=== PATIENT | male | born 1945 | race Hispanic/Latino ===

== ENCOUNTER 2019-11-21 10:23 | Inpatient (IN) | payer OTHER ==
[~2019-11-21] VITALS: Ht 165.1 cm; Wt 75.8 kg
[~2019-11-21 10:23] MED LIST: AEC81 PO; FURO40TA7 PO; LISI1TAB51 PO; METO50TA9 PO; NPH,100V SQ; WARF6TAB49 PO
[2019-11-21] MEDS ORDERED: SODIUM CHLORIDE 0.9% 1000ML 1,000 ML IV ONE (10:48)
[2019-11-21 11:05] LABS: APPEARANCE,URINE Clear (CLEAR); BILIRUBIN,URINE Negative (NEGATIVE); COLOR,URINE Yellow (YELLOW); GLUCOSE, URINE (UA) Negative (NEGATIVE); KETONES,URINE Negative (NEGATIVE); LEUKOCYTE ESTERASE ,URINE Negative (NEGATIVE); NITRATE,URINE Negative (NEGATIVE); OCCULT BLOOD,URINE Negative (NEGATIVE); PROTEIN,URINE Negative (NEGATIVE); UROBILINOGEN,URINE 0.2 mg/dL (0.2-1.0)
[2019-11-21 11:19] LABS: BASOPHILS % (AUTO) 0.3 % (0.0-5.0); HEMATOCRIT 35.8 % (42-54); LYMPHOCYTES % (AUTO) 12.5 % (21.0-51.0); MEAN CORPUSCULAR HEMOGLOBIN 29.8 pg (27.0-33.0); MEAN CORPUSCULAR HGB CONC 33.2 g/dL (32.0-36.0); MEAN CORPUSCULAR VOLUME 89.5 fL (79-99); MONOCYTES % (AUTO) 6.4 % (3.0-13.0); NEUTROPHILS % (AUTO) 78.5 % (40.0-77.0); PLATELET COUNT (AUTO) 363 K/uL (130-400); RED CELL DISTRIBUTION WIDTH 13.9 % (11.0-15.5); WHITE BLOOD COUNT (AUTO) 16.7 K/uL (4.8-10.8)
[2019-11-21 11:36] LABS: ALBUMIN 3.3 g/dL (3.5-5.0); BILIRUBIN,TOTAL 0.6 mg/dL (0.2-1.0); CREATININE 2.4 mg/dL (0.5-1.5); POTASSIUM 4.8 mmol/L (3.5-5.1); TOTAL PROTEIN, SERUM 6.6 g/dL (6.0-8.3)
[2019-11-21 11:41] LABS: INR 1.7 (0.85-1.15); PARTIAL THROMBOPLASTIN TIME 29.8 SEC (26.3-35.5)
[2019-11-21] MEDS ORDERED: LEVOFLOXACIN 500 MG/D5W 100 ML 100 ML ONE (13:15)
[2019-11-21] MEDS ORDERED: METRONIDAZOLE 500MG/100ML BAG 100 ML ONE (13:22)
[2019-11-21] MEDS ORDERED: ONDANSETRON HCL 4 MG/2 ML VIAL IV PRN (14:15)
[2019-11-21] MEDS ORDERED: HYDRALAZINE HCL 20 MG/ML VIAL IV PRN (14:15)
[2019-11-21] MEDS ORDERED: ACETAMINOPHEN 325 MG TAB PO PRN (14:15)
[2019-11-21] MEDS: SODIUM CHLORIDE 0.9% 1000ML 1,000 ML IV SCH (14:37)
[2019-11-21] MEDS: LACTULOSE 20 GM/30 ML UDCUP PO SCH (14:45)
[2019-11-21] MEDS ORDERED: LACTULOSE 20 GM/30 ML UDCUP ONE (16:03)
[2019-11-21] MEDS ORDERED: ZOSYN 3.375GM+NS 50ML 50 ML IV ONE (16:03)
[2019-11-21 16:20] LABS: HEMOGLOBIN A1C 8.1 % (4.0-6.0)
[2019-11-21 16:31] LABS: CRP QUANTITATIVE 34.6 mg/L (0.00-9.0); PHOSPHORUS 4.5 mg/dL (2.5-4.9)
[2019-11-21 16:37] LABS: TROPONIN I 0.57 ng/mL (0.00-0.06)
[2019-11-21 17:20] VITALS: BP 106/58
--- NOTE | 2019-11-21 17:35 | NUR ---
ADMISSION FROM ER. PT AAO X 3 . PT STATED THAT HE IS FORGETFUL BUT IS ABLE TO FOCUS WITH HIS CARE, AND QUESTIONS . REVIEW PLAN OF CARE. OFFER DIET. DUE TO PT IS VERY HUNGRY FALL RISK REVIEW. HX OF PT TAKES COUMADIN . AND DOES REMEMBER IF HE TAKES IT IN THE AM . OR NITE. PENDING TO BRING MEDICATIONS FROM HOME, WILL DIRECT QUESTIONS
[2019-11-21] MEDS: PREDNISONE 5 MG TABLET PO SCH (18:42)
--- NOTE | 2019-11-21 18:45 | NUR ---
POSITION PT TO HIS LEFT SIDE, AND GAVE THE SOAP SUB ENEMA NO. ONE . HAD A LARGE DARK GREEN CONSTIPATED SEMI LOOSE BM. CLEAN PT. HAVING LIQ BM INTERMMITTED . . . TODAY COUMADIN OF 5 MG PO WILL BE GIVEN AFTER RECTAL ENEMA NO. 2 . WILL MONITOR RISK OF BLEEDING. TOLERATE NO.1 ENEMA WITH NO BLEEDING . AND ALSO WILL GET INFORMATION OF LAST DOSE OF COUMADIN FROM HIS JOSE ALBERTO . WHEN SHE COME IN. CALL LIGHT IN REACH .
[2019-11-21 19:53] VITALS: BP 102/57
[2019-11-21] MEDS: ATORVASTATIN CALCIUM 10 MG TABLET PO SCH (21:33)
[2019-11-21] MEDS: ZOSYN 3.375GM+NS 50ML 50 ML IV SCH (21:33)
[2019-11-21] MEDS: WARFARIN SODIUM 5 MG TAB PO SCH (21:34)
[2019-11-21 23:18] LABS: TROPONIN I 0.43 ng/mL (0.00-0.06)
[2019-11-21 23:53] VITALS: BP 107/50
[2019-11-22 03:49] VITALS: BP 121/68
[2019-11-22] MEDS ORDERED: DEXTROSE 50%-WATER 50 ML DISP.SYRIN IV ONE (04:59)
[2019-11-22 05:35] LABS: BASOPHILS % (AUTO) 0.1 % (0.0-5.0); EOSINOPHILS % (AUTO) 0.6 % (0.0-8.0); HEMATOCRIT 31.8 % (42-54); MEAN CORPUSCULAR HGB CONC 32.7 g/dL (32.0-36.0); MEAN CORPUSCULAR VOLUME 88.6 fL (79-99); MONOCYTES % (AUTO) 6.5 % (3.0-13.0); NEUTROPHILS % (AUTO) 75.1 % (40.0-77.0); PLATELET COUNT (AUTO) 311 K/uL (130-400); RED BLOOD CELL COUNT(AUTO) 3.59 MIL/uL (4.50-6.20); RED CELL DISTRIBUTION WIDTH 13.9 % (11.0-15.5); WHITE BLOOD COUNT (AUTO) 13.4 K/uL (4.8-10.8)
[2019-11-22 05:52] LABS: CREATININE 1.6 mg/dL (0.5-1.5); POTASSIUM 4.4 mmol/L (3.5-5.1); TROPONIN I 0.37 ng/mL (0.00-0.06)
[2019-11-22 08:37] VITALS: BP 122/69
[2019-11-22] MEDS: ASPIRIN 325 MG TABLET PO SCH (09:00)
[2019-11-22] MEDS: ABIRATERONE ACETATE 250 MG PO SCH (09:00)
[2019-11-22] MEDS: BICALUTAMIDE 50 MG PO SCH (09:00)
[2019-11-22] MEDS: ZOSYN 3.375GM+NS 50ML 50 ML IV SCH ×2 (09:35→20:41)
[2019-11-22] MEDS: PREDNISONE 5 MG TABLET PO SCH ×2 (09:35→15:15)
[2019-11-22] MEDS: TAMSULOSIN HCL 0.4 MG CAP.ER.24H PO SCH (09:35)
[2019-11-22] MEDS: LISINOPRIL 5 MG TABLET PO SCH (09:36)
[2019-11-22] MEDS ORDERED: TAMS-1 PO (09:51)
[2019-11-22] MEDS ORDERED: METO50 PO (09:51)
[2019-11-22] MEDS ORDERED: BICA50TA7 PO (09:51)
[2019-11-22] MEDS ORDERED: WARF-57 PO (09:51)
[2019-11-22] MEDS ORDERED: METF-444 PO (09:51)
[2019-11-22] MEDS ORDERED: ABIR250T2 PO (09:51)
[2019-11-22] MEDS ORDERED: PRED5TAB44 PO (09:51)
[2019-11-22] MEDS ORDERED: WARF4TAB72 PO (09:51)
[2019-11-22] MEDS ORDERED: LISI1TAB51 PO (09:51)
[2019-11-22] MEDS ORDERED: FURO40TA5 PO (09:51)
[2019-11-22] MEDS ORDERED: ATOR10TA69 PO (09:51)
[2019-11-22] MEDS ORDERED: NPH,100V11 SQ (09:53)
[2019-11-22] MEDS ORDERED: METOPROLOL TARTRATE 25 MG TAB PO SCH (10:30)
[2019-11-22] MEDS ORDERED: METOPROLOL TARTRATE 1 MG/ML 5ML VIAL IV SCH (14:30)
[2019-11-22] MEDS ORDERED: METOPROLOL TARTRATE 1 MG/ML 5ML VIAL IV ONE (14:44)
[2019-11-22] MEDS: LACTULOSE 20 GM/30 ML UDCUP PO SCH (14:45)
[2019-11-22] MEDS ORDERED: FAMOTIDINE 20MG TAB 20 MG TAB ONE (15:07)
[2019-11-22] MEDS: WARFARIN SODIUM 2 MG TAB PO SCH (15:14)
[2019-11-22] MEDS: SODIUM CHLORIDE 0.9% 1000ML 1,000 ML IV SCH ×2 (15:14→20:37)
--- NOTE | 2019-11-22 15:21 | NUR ---
1500 patient signed IM Letter, I faxed IM Letter to [phone] and placed in chart under consent tab.
--- NOTE | 2019-11-22 15:30 | NUR ---
CM NOTE/IA MEET WITH PATIENT IN ROOM. PER PATIENT, LIVES WITH SPOUSE, IS INDEPENDENT WITH ADLS, HAS USE OF CANE AND STD WALKER, NO HOME HEALTH IN USE AND FEELS SAFE TO RETURN HOME. Addendum: 11/24/19 at 1531 by SHUKRI THOMPSON RN CM Amended: Links added.
--- NOTE | 2019-11-22 17:00 | NUR ---
CM ASSESSMENT PER CM NOTES, PATIENT LIVES WITH SPOUSE, IS INDEPENDENT OF ADLS, USSES A CANEAND OR WALKER, AND DCP PLAN IS HOME. CM TO FOLLOW Addendum: 11/23/19 at 1707 by KANDICE MUNROE RN CM Amended: Links added.
[2019-11-22 17:12] VITALS: BP 148/75
[2019-11-22 20:25] VITALS: BP 109/64
[2019-11-22] MEDS: ATORVASTATIN CALCIUM 10 MG TABLET PO SCH (20:41)
--- NOTE | 2019-11-22 21:26 | NUR ---
NOTE 2053 PATIENT HAS A BLOOD SUGAR LEVEL OF 327. CONTACTED HOSPITALIST JACOB VIA ANSWERING SERVICE. 2125 RECEIVED CALL BACK FROM KEVON CORTEZ NP. INFORMED HER OF PATIENT BLOOD SUGAR AND ALSO THAT HE HAS A 52 LEVEL THIS MORNING. ORDERS RECEIVED FOR 1/2 SS INSULIN. NOTIFIED PATIENT OF NEW ORDERS.
[2019-11-22] MEDS: INSULIN HUMULIN R 100 UNIT/ML 3ML SQ SCH (23:21)
[2019-11-22 23:37] VITALS: BP 120/63
[2019-11-23] MEDS: SODIUM CHLORIDE 0.9% 1000ML 1,000 ML IV SCH ×3 (02:59→20:55)
[2019-11-23 04:00] VITALS: BP 141/64
[2019-11-23 05:51] LABS: BASOPHILS % (AUTO) 0.3 % (0.0-5.0); EOSINOPHILS % (AUTO) 2.7 % (0.0-8.0); HEMATOCRIT 32.3 % (42-54); MEAN CORPUSCULAR HEMOGLOBIN 29.8 pg (27.0-33.0); MEAN CORPUSCULAR HGB CONC 32.8 g/dL (32.0-36.0); MEAN CORPUSCULAR VOLUME 90.7 fL (79-99); MONOCYTES % (AUTO) 8.8 % (3.0-13.0); NEUTROPHILS % (AUTO) 56.6 % (40.0-77.0); PLATELET COUNT (AUTO) 300 K/uL (130-400); RED BLOOD CELL COUNT(AUTO) 3.56 MIL/uL (4.50-6.20); RED CELL DISTRIBUTION WIDTH 13.8 % (11.0-15.5)
[2019-11-23] MEDS: INSULIN HUMULIN R 100 UNIT/ML 3ML SQ SCH (05:55)
--- NOTE | 2019-11-23 05:58 | NUR ---
NOTE 0530 PATIENT WITH BLOOD SUGAR LEVEL 30. PATIENT IS AWAKE AND ALERT. SPEECH IS CLEAR AND RESPONDS APPROPRIATELY. DENIES FEELING ANY SYMPTOMS OF LOW BLOOD SUGAR. WILL GIVE HIM SNACK. 0550 PAGED HOSPITALIST TO NOTIFY. PATIENT DRANK JUICE. 0554 RECEIVED CALLBACK FROM Jesi CORTEZ INCIDENT RESPONSE MANAGER. NOTIFIED OF SITUATION. ORDERS RECEIVED FOR HYPOGLYCEMIA PROTOCOL AND IF UPON RECHECK OF BLOOD SUGAR, (SINCE PATIENT DRANK JUICE) IT IS STILL LOW, GIVE 1 AM OF D50% IV. NOTIFIED PATIENT OF NEW ORDERS.
[2019-11-23] MEDS ORDERED: DEXTROSE 50%-WATER 50 ML DISP.SYRIN IV PRN (06:00)
[2019-11-23] MEDS ORDERED: GLUCAGON 1MG KIT 1 MG ML IM PRN (06:00)
[2019-11-23] MEDS: PREDNISONE 5 MG TABLET PO SCH ×2 (06:12→15:41)
[2019-11-23 06:17] LABS: CREATININE 1.3 mg/dL (0.5-1.5); MAGNESIUM 1.9 mg/dL (1.80-2.40); POTASSIUM 4.2 mmol/L (3.5-5.1)
[2019-11-23 08:32] VITALS: BP 179/89
[2019-11-23] MEDS: TAMSULOSIN HCL 0.4 MG CAP.ER.24H PO SCH (08:39)
[2019-11-23] MEDS: ASPIRIN 325 MG TABLET PO SCH (08:39)
[2019-11-23] MEDS: ZOSYN 3.375GM+NS 50ML 50 ML IV SCH (08:39)
[2019-11-23] MEDS: METOPROLOL TARTRATE 50 MG TAB PO SCH (08:46)
[2019-11-23] MEDS: LISINOPRIL 5 MG TABLET PO SCH (08:47)
[2019-11-23] MEDS: BICALUTAMIDE 50 MG PO SCH (08:49)
[2019-11-23] MEDS: ABIRATERONE ACETATE 250 MG PO SCH (08:49)
[2019-11-23 11:46] VITALS: BP 123/59
[2019-11-23] MEDS: AMLODIPINE BESYLATE 5 MG TAB PO SCH (12:38)
[2019-11-23] MEDS: WARFARIN SODIUM 5 MG TAB PO SCH (15:41)
--- NOTE | 2019-11-23 17:08 | NUR ---
LISTENED TO DR. MOFFETT DISCUSS OPTIONS FOR PATIENT THIS MORNING- STATED IF DR. LANDEROS STATES IS NOT A SURGICAL CANDIDATE., PATIENT MAY BE A CANDIDATE FOR PAIN MANAGEMENT TEAM. ISRRAEL MYLES NOTED AND WILL DISCUSS/REVIEW. THIS AFTERNOON NOTED PATIENTS PLAN OF CARE WITH S REP-PAIN MEDS? WILL FOLLOW . Addendum: 11/23/19 at 1712 by KANDICE MUNROE RN Amended: Links added.
[2019-11-23 17:12] VITALS: BP_SYST 154; BP_SYST 160; BP_DIAS 62; BP_DIAS 71
--- NOTE | 2019-11-23 17:12 | NUR ---
DISPOSTION EXPECTED TO BE TO HOME WITH SAME EQUIPMENT Addendum: 11/23/19 at 1712 by KANDICE MUNROE RN CM Amended: Links added.
[2019-11-23] MEDS: ACETAMINOPHEN 325 MG TAB PO PRN (18:07)
[2019-11-23 19:25] VITALS: BP 142/79
[2019-11-23] MEDS: ATORVASTATIN CALCIUM 10 MG TABLET PO SCH (20:54)
[2019-11-23 23:28] VITALS: BP 138/68
[2019-11-24 03:21] VITALS: BP 143/81
[2019-11-24 05:32] LABS: BASOPHILS % (AUTO) 0.3 % (0.0-5.0); EOSINOPHILS % (AUTO) 3.3 % (0.0-8.0); HEMATOCRIT 28.5 % (42-54); LYMPHOCYTES % (AUTO) 24.8 % (21.0-51.0); MEAN CORPUSCULAR HEMOGLOBIN 29.9 pg (27.0-33.0); MEAN CORPUSCULAR HGB CONC 33.3 g/dL (32.0-36.0); MEAN CORPUSCULAR VOLUME 89.6 fL (79-99); MONOCYTES % (AUTO) 8.2 % (3.0-13.0); NEUTROPHILS % (AUTO) 62.7 % (40.0-77.0); PLATELET COUNT (AUTO) 265 K/uL (130-400); RED BLOOD CELL COUNT(AUTO) 3.18 MIL/uL (4.50-6.20); RED CELL DISTRIBUTION WIDTH 13.4 % (11.0-15.5); WHITE BLOOD COUNT (AUTO) 12.3 K/uL (4.8-10.8)
[2019-11-24 05:47] LABS: CREATININE 0.9 mg/dL (0.5-1.5); POTASSIUM 4.2 mmol/L (3.5-5.1)
[2019-11-24] MEDS: METOPROLOL TARTRATE 50 MG TAB PO SCH (08:46)
[2019-11-24] MEDS: PREDNISONE 5 MG TABLET PO SCH ×2 (08:46→16:38)
[2019-11-24] MEDS: ASPIRIN 325 MG TABLET PO SCH (08:46)
[2019-11-24] MEDS: AMLODIPINE BESYLATE 5 MG TAB PO SCH (08:47)
[2019-11-24] MEDS: LISINOPRIL 5 MG TABLET PO SCH (08:47)
[2019-11-24] MEDS: TAMSULOSIN HCL 0.4 MG CAP.ER.24H PO SCH (08:47)
[2019-11-24] MEDS: ABIRATERONE ACETATE 250 MG PO SCH (08:51)
[2019-11-24] MEDS: BICALUTAMIDE 50 MG PO SCH (08:51)
[2019-11-24 09:07] VITALS: BP 147/64
[2019-11-24 09:09] LABS: HEMOGLOBIN A1C 8.2 % (4.0-6.0)
[2019-11-24 09:12] LABS: INR 2.33 (0.85-1.15); PARTIAL THROMBOPLASTIN TIME 31.2 SEC (26.3-35.5); PROTHROMBIN TIME 24.4 SEC (9.6-11.6)
[2019-11-24 11:00] VITALS: BP 128/73
[2019-11-24] MEDS: INSULIN HUMULIN R 100 UNIT/ML 3ML SQ SCH ×3 (11:30→20:31)
[2019-11-24] MEDS: SODIUM CHLORIDE 0.9% 1000ML 1,000 ML IV SCH (13:13)
--- NOTE | 2019-11-24 14:56 | NUR ---
NUTRITION EDUCATION RD provided Diverticulosis/Diverticulitis/High Fiber and Warfarin Nutrition Education. RD reviewed reference materials with Pt. RD discussed high fiber nutrition therapy with restrictions due to Warfarin medication. RD reviewed Warfarin Nutrition Therapy. RD answered all Pt questions. NUTRITION NOTE: Pt with improved PO intake. Pt disliked breakfast. Zofran in place for abdominal pain, per RN. RD to continue to monitor. Addendum: 11/24/19 at [address] RD Amended: Links added.
[2019-11-24] MEDS: WARFARIN SODIUM 2 MG TAB PO SCH (16:38)
[2019-11-24 17:12] VITALS: BP 133/72
[2019-11-24 19:57] VITALS: BP 122/85
[2019-11-24] MEDS: ATORVASTATIN CALCIUM 10 MG TABLET PO SCH (20:30)
[2019-11-25 00:21] VITALS: BP 137/49
[2019-11-25 04:28] VITALS: BP 126/72
[2019-11-25 05:17] LABS: CREATININE 0.8 mg/dL (0.5-1.5); MAGNESIUM 1.9 mg/dL (1.80-2.40); POTASSIUM 4.1 mmol/L (3.5-5.1)
[2019-11-25] MEDS: PREDNISONE 5 MG TABLET PO SCH ×2 (05:44→15:51)
[2019-11-25] MEDS: ACETAMINOPHEN 325 MG TAB PO PRN (05:44)
[2019-11-25] MEDS: SODIUM CHLORIDE 0.9% 1000ML 1,000 ML IV SCH (05:45)
[2019-11-25] MEDS: INSULIN HUMULIN R 100 UNIT/ML 3ML SQ SCH ×3 (06:44→16:24)
[2019-11-25 07:30] VITALS: BP 150/74
[2019-11-25] MEDS: AMLODIPINE BESYLATE 5 MG TAB PO SCH (08:31)
[2019-11-25] MEDS: LISINOPRIL 5 MG TABLET PO SCH (08:31)
[2019-11-25] MEDS: METOPROLOL TARTRATE 50 MG TAB PO SCH (08:31)
[2019-11-25] MEDS: ASPIRIN 325 MG TABLET PO SCH (08:31)
[2019-11-25] MEDS: ABIRATERONE ACETATE 250 MG PO SCH (08:33)
[2019-11-25] MEDS: BICALUTAMIDE 50 MG PO SCH (08:33)
[2019-11-25 11:00] VITALS: BP 127/77
[2019-11-25] MEDS ORDERED: TRAMADOL HCL 50 MG TABLET PO PRN (11:15)
[2019-11-25] MEDS: TAMSULOSIN HCL 0.4 MG CAP.ER.24H PO SCH (11:30)
--- NOTE | 2019-11-25 12:49 | NUR ---
MD ROUNDS DR. NETTLES AND DR. HUGGINS IN TO SEE PATIENT. NO NEW ORDERS AT THIS TIME.
[2019-11-25] MEDS: WARFARIN SODIUM 5 MG TAB PO SCH (15:51)
[2019-11-25 16:00] VITALS: BP 127/72
[2019-11-25] MEDS: ATORVASTATIN CALCIUM 10 MG TABLET PO SCH (20:30)
[2019-11-25] MEDS: METOPROLOL TARTRATE 25 MG TAB PO SCH (20:30)
[2019-11-26] VITALS: BP 144/82
[2019-11-26] MEDS: INSULIN HUMULIN R 100 UNIT/ML 3ML SQ SCH ×2 (03:38→06:28)
[2019-11-26 04:00] VITALS: BP 141/70
[2019-11-26 05:42] LABS: BASOPHILS % (AUTO) 0.1 % (0.0-5.0); HEMATOCRIT 27.1 % (42-54); LYMPHOCYTES % (AUTO) 19.2 % (21.0-51.0); MEAN CORPUSCULAR HEMOGLOBIN 29.3 pg (27.0-33.0); MEAN CORPUSCULAR HGB CONC 32.8 g/dL (32.0-36.0); MEAN CORPUSCULAR VOLUME 89.1 fL (79-99); MONOCYTES % (AUTO) 7.2 % (3.0-13.0); NEUTROPHILS % (AUTO) 70.8 % (40.0-77.0); PLATELET COUNT (AUTO) 257 K/uL (130-400); RED BLOOD CELL COUNT(AUTO) 3.04 MIL/uL (4.50-6.20); RED CELL DISTRIBUTION WIDTH 13.6 % (11.0-15.5); WHITE BLOOD COUNT (AUTO) 14.2 K/uL (4.8-10.8)
[2019-11-26 05:51] LABS: INR 2.88 (0.85-1.15); PROTHROMBIN TIME 29.9 SEC (9.6-11.6)
[2019-11-26] MEDS: PREDNISONE 5 MG TABLET PO SCH ×2 (06:42→16:14)
[2019-11-26 08:00] VITALS: BP 132/87
[2019-11-26] MEDS: ABIRATERONE ACETATE 250 MG PO SCH (09:00)
[2019-11-26] MEDS: BICALUTAMIDE 50 MG PO SCH (09:00)
[2019-11-26] MEDS: LIDOCAINE 5% TOPICAL PATCH TP SCH (10:01)
[2019-11-26] MEDS: METOPROLOL TARTRATE 50 MG TAB PO SCH (10:01)
[2019-11-26] MEDS: TAMSULOSIN HCL 0.4 MG CAP.ER.24H PO SCH (10:02)
[2019-11-26] MEDS: LISINOPRIL 5 MG TABLET PO SCH (10:02)
[2019-11-26] MEDS: AMLODIPINE BESYLATE 5 MG TAB PO SCH (10:02)
[2019-11-26] MEDS: ASPIRIN 81 MG EC TAB PO SCH (10:05)
[2019-11-26] MEDS ORDERED: GLUCAGON 1MG KIT 1 MG ML IM PRN (11:45)
[2019-11-26] MEDS ORDERED: DEXTROSE 50%-WATER 50 ML DISP.SYRIN IV PRN (11:45)
[2019-11-26 12:00] VITALS: BP 132/63
[2019-11-26] MEDS ORDERED: INSULIN GLARGINE 100 UNITS/ML 10 ML VIAL SQ SCH (12:00)
[2019-11-26 16:00] VITALS: BP 130/78
[2019-11-26] MEDS: WARFARIN SODIUM 5 MG TAB PO SCH (16:13)
[2019-11-26] MEDS ORDERED: INSULIN HUMULIN R 100 UNIT/ML 3ML SQ SCH ×2 (16:30→18:15)
[2019-11-26 19:30] VITALS: BP 125/63
[2019-11-26] MEDS: METOPROLOL TARTRATE 25 MG TAB PO SCH (20:49)
[2019-11-26] MEDS: ATORVASTATIN CALCIUM 10 MG TABLET PO SCH (20:49)
[2019-11-27] VITALS: BP 128/68
[2019-11-27 04:00] VITALS: BP 146/58
[2019-11-27 06:24] LABS: INR 2.83 (0.85-1.15); PROTHROMBIN TIME 29.4 SEC (9.6-11.6)
[2019-11-27] MEDS: PREDNISONE 5 MG TABLET PO SCH ×2 (06:28→16:31)
[2019-11-27 08:00] VITALS: BP 145/72
[2019-11-27] MEDS: BICALUTAMIDE 50 MG PO SCH (09:00)
[2019-11-27] MEDS: ABIRATERONE ACETATE 250 MG PO SCH (09:00)
[2019-11-27] MEDS ORDERED: INSULIN GLARGINE 100 UNITS/ML 10 ML VIAL SQ ONE (09:00)
[2019-11-27] MEDS ORDERED: INSULIN GLARGINE 100 UNITS/ML 10 ML VIAL SQ SCH (09:00)
[2019-11-27] MEDS: AMLODIPINE BESYLATE 5 MG TAB PO SCH (10:05)
[2019-11-27] MEDS: LISINOPRIL 5 MG TABLET PO SCH (10:06)
[2019-11-27] MEDS: LIDOCAINE 5% TOPICAL PATCH TP SCH (10:06)
[2019-11-27] MEDS: METOPROLOL TARTRATE 50 MG TAB PO SCH (10:06)
[2019-11-27] MEDS: TAMSULOSIN HCL 0.4 MG CAP.ER.24H PO SCH (10:06)
[2019-11-27] MEDS: ASPIRIN 81 MG EC TAB PO SCH (10:06)
[2019-11-27 12:00] VITALS: BP 121/64
[2019-11-27 16:00] VITALS: BP 123/79
[2019-11-27] MEDS ORDERED: WARFARIN SODIUM 5 MG TAB PO SCH (16:00)
[2019-11-27] MEDS: INSULIN HUMULIN R 100 UNIT/ML 3ML SQ SCH ×2 (16:37→21:53)
[2019-11-27] MEDS: METOPROLOL TARTRATE 25 MG TAB PO SCH (21:43)
[2019-11-27] MEDS: ATORVASTATIN CALCIUM 10 MG TABLET PO SCH (21:44)
[2019-11-27 22:10] VITALS: BP 143/76
[2019-11-28 01:23] VITALS: BP 135/70
[2019-11-28] MEDS: INSULIN HUMULIN R 100 UNIT/ML 3ML SQ SCH ×3 (05:31→17:29)
[2019-11-28 06:06] VITALS: BP 123/65
[2019-11-28] MEDS: PREDNISONE 5 MG TABLET PO SCH ×2 (06:30→17:16)
[2019-11-28 08:20] VITALS: BP 147/75
[2019-11-28] MEDS ORDERED: INSULIN GLARGINE 100 UNITS/ML 10 ML VIAL SQ SCH (09:00)
[2019-11-28] MEDS: BICALUTAMIDE 50 MG PO SCH (09:00)
[2019-11-28] MEDS: ABIRATERONE ACETATE 250 MG PO SCH (09:00)
[2019-11-28] MEDS: AMLODIPINE BESYLATE 5 MG TAB PO SCH (09:09)
[2019-11-28] MEDS: TAMSULOSIN HCL 0.4 MG CAP.ER.24H PO SCH (09:09)
[2019-11-28] MEDS: METOPROLOL TARTRATE 50 MG TAB PO SCH (09:10)
[2019-11-28] MEDS: LIDOCAINE 5% TOPICAL PATCH TP SCH (09:10)
[2019-11-28] MEDS: LISINOPRIL 5 MG TABLET PO SCH (09:10)
[2019-11-28] MEDS: ASPIRIN 81 MG EC TAB PO SCH (09:10)
[2019-11-28 11:48] VITALS: BP 144/88
--- NOTE | 2019-11-28 11:57 | NUR ---
EXPECT DISP TO HOME TODAY IF CLEARED BY DR. NETTLES Addendum: 11/28/19 at 1158 by KANDICE MUNROE RN CM Amended: Links added.
[2019-11-28 17:13] VITALS: BP 103/70
[2019-11-28] MEDS ORDERED: LIDO1ADH82 TP (17:48)
[2019-11-28] MEDS ORDERED: KETO10TA2 PO (17:48)
--- NOTE | 2019-11-28 18:30 | NUR ---
note DISCHARGE INSTRUCTIONS GIVEN TO PATIENT AND SPOKE TO OVER TELEPHONE. REFER TO DC SUMMARY FOR DETAILS.
[2019-11-29] MEDS ORDERED: INSULIN GLARGINE 100 UNITS/ML 10 ML VIAL SQ SCH (09:00)
== END 2019-11-28 19:05 | disposition home or self-care (01) | DRG 683 ==
LOC: EDH 10:23 → EDHIP 14:11 → OBSVTOIN 14:11 → 3CH 17:26
PROVIDERS: ADMIT Internal Medicine; ATTEND Internal Medicine
DX: N17.9 Acute kidney failure, unspecified (principal); M48.54XA Collapsed vertebra, not elsewhere classified, thoracic region, initial encounter for fracture; I48.20 Chronic atrial fibrillation, unspecified; E87.2 Acidosis; I24.8 Other forms of acute ischemic heart disease; K56.41 Fecal impaction; K57.30 Diverticulosis of large intestine without perforation or abscess without bleeding; K44.9 Diaphragmatic hernia without obstruction or gangrene; E78.5 Hyperlipidemia, unspecified; I12.9 Hypertensive chronic kidney disease with stage 1 through stage 4 chronic kidney disease, or unspecified chronic kidney disease; I25.10 Atherosclerotic heart disease of native coronary artery without angina pectoris; N18.9 Chronic kidney disease, unspecified; M47.816 Spondylosis without myelopathy or radiculopathy, lumbar region; E86.0 Dehydration; D64.9 Anemia, unspecified; E66.9 Obesity, unspecified; R53.81 Other malaise; M48.061 Spinal stenosis, lumbar region without neurogenic claudication; Z68.27 Body mass index [BMI] 27.0-27.9, adult; G89.29 Other chronic pain; T38.0X5A Adverse effect of glucocorticoids and synthetic analogues, initial encounter; K43.9 Ventral hernia without obstruction or gangrene; W19.XXXA Unspecified fall, initial encounter; Y93.89 Activity, other specified; Y99.8 Other external cause status; Y92.89 Other specified places as the place of occurrence of the external cause; Z79.01 Long term (current) use of anticoagulants; Z79.52 Long term (current) use of systemic steroids; Z79.899 Other long term (current) drug therapy; Z95.1 Presence of aortocoronary bypass graft; Z85.46 Personal history of malignant neoplasm of prostate; Z91.19 Patient's noncompliance with other medical treatment and regimen; Z83.3 Family history of diabetes mellitus
CPT/HCPCS: 36415; 71250; 72148; 74176; 78306; 80048; 80053; 81003; 82150; 82550; 82948; 83036; 83605; 83690; 83735; 83874; 83880; 84100; 84153; 84484; 85025; 85610; 85730; 86140; 86850; 86900; 86901; 87040; 93005; 93306; 97039; A9503; G0378; J1815; J1956; J2405; J2543; J3490; J7030; J7070; J7512

== ENCOUNTER 2020-07-07 23:47 | Inpatient (IN) | payer MEDICARE, OTHER ==
[~2020-07-07] VITALS: Ht 157.5 cm; Wt 62.4 kg
[~2020-07-07 23:47] MED LIST changes: +ABIR250T2 PO; -AEC81 PO; +ATOR10TA69 PO; +BICA50TA7 PO; +FURO40TA5 PO; -FURO40TA7 PO; +KETO10TA2 PO; +LIDO1ADH82 TP; +METF-444 PO; +METO50 PO; -METO50TA9 PO; -NPH,100V SQ; +NPH,100V11 SQ; +PRED5TAB44 PO; +TAMS-1 PO; +WARF-57 PO; +WARF4TAB72 PO; -WARF6TAB49 PO
[2020-07-07] MEDS ORDERED: DILTIAZEM 125 MG/25 ML INJ IV ONE (23:55)
[2020-07-07] MEDS ORDERED: 0.9%NACL 100ML 100 ML IV ONE (23:57)
[2020-07-08] MEDS ORDERED: DILTIAZEM 50MG VIAL IV ONE (00:10)
[2020-07-08 00:26] LABS: CREATININE 1.6 mg/dL (0.5-1.5); POTASSIUM 4.4 mmol/L (3.5-5.1)
[2020-07-08 00:30] LABS: BASOPHILS % (AUTO) 0.1 % (0.0-5.0); HEMATOCRIT 36.2 % (42-54); LYMPHOCYTES % (AUTO) 8.4 % (21.0-51.0); MEAN CORPUSCULAR HEMOGLOBIN 29.2 pg (27.0-33.0); MEAN CORPUSCULAR HGB CONC 33.1 g/dL (32.0-36.0); MEAN CORPUSCULAR VOLUME 88.1 fL (79-99); MONOCYTES % (AUTO) 8.4 % (3.0-13.0); NEUTROPHILS % (AUTO) 82.6 % (40.0-77.0); PLATELET COUNT (AUTO) 415 K/uL (130-400); RED BLOOD CELL COUNT(AUTO) 4.11 MIL/uL (4.50-6.20); RED CELL DISTRIBUTION WIDTH 13.3 % (11.0-15.5); WHITE BLOOD COUNT (AUTO) 7.3 K/uL (4.8-10.8)
[2020-07-08 00:31] LABS: ALBUMIN 3.1 g/dL (3.5-5.0); BILIRUBIN,TOTAL 0.8 mg/dL (0.2-1.0); TOTAL PROTEIN, SERUM 6.9 g/dL (6.0-8.3)
[2020-07-08 00:33] LABS: INR 1.16 (0.85-1.15); PROTHROMBIN TIME 12.5 SEC (9.6-11.6)
[2020-07-08 00:35] LABS: PARTIAL THROMBOPLASTIN TIME 24.1 SEC (26.3-35.5)
[2020-07-08] MEDS ORDERED: CEFTRIAXONE 1G VIAL ONE (00:44)
[2020-07-08] MEDS ORDERED: 0.9%NACL 100ML 100 ML IV ONE (00:44)
[2020-07-08] MEDS ORDERED: PANTOPRAZOLE 40 MG/VIAL ONE (00:44)
[2020-07-08 01:16] LABS: APPEARANCE,URINE Cloudy (CLEAR); BILIRUBIN,URINE Moderate (NEGATIVE); COLOR,URINE Dark Yellow (YELLOW); GLUCOSE, URINE (UA) Negative (NEGATIVE); KETONES,URINE Trace mg/dL (NEGATIVE); LEUKOCYTE ESTERASE ,URINE Large (NEGATIVE); NITRATE,URINE Negative (NEGATIVE); OCCULT BLOOD,URINE Moderate (NEGATIVE); PH,URINE 5.5 (5.0-8.0); PROTEIN,URINE POS 2+ mg/dL (NEGATIVE)
[2020-07-08 01:29] LABS: BACTERIA,URINE Rare /HPF (None Seen); SQUAMOUS EPITHELIAL CELL,UR Few /HPF (0-2)
[2020-07-08 01:37] LABS: AMPHET/METH SCREEN,URINE NEGATIVE (NEGATIVE); BARBITURATE SCREEN, URINE NEGATIVE (NEGATIVE); BENZODIAZEPINES SCREEN,URINE NEGATIVE (NEGATIVE); CANNABINOID SCREEN,URINE NEGATIVE (NEGATIVE); COCAINE SCREEN,URINE NEGATIVE (NEGATIVE); OPIATE SCREEN,URINE POSITIVE (NEGATIVE); PHENCYCLIDINE SCREEN,URINE NEGATIVE (NEGATIVE)
[2020-07-08] MEDS ORDERED: ZOSYN 3.375GM+NS 50ML 50 ML IV ONE ×3 (03:06→20:05)
[2020-07-08] MEDS ORDERED: ACETAMINOPHEN 325 MG TAB ONE (03:14)
[2020-07-08] MEDS ORDERED: MORPHINE 2 MG SYG IVP PRN (03:45)
[2020-07-08] MEDS ORDERED: MORPHINE 4 MG SYG IVP PRN (03:45)
[2020-07-08] MEDS ORDERED: ONDANSETRON 4MG INJ IVP PRN (03:45)
[2020-07-08] MEDS ORDERED: ACETAMINOPHEN 325 MG TAB PO PRN (03:45)
[2020-07-08] MEDS: 0.9%NACL 1000ML 1,000 ML IV SCH ×3 (03:45→19:45)
[2020-07-08] MEDS ORDERED: LORAZEPAM 2 MG/ML 1 ML VIAL IVP PRN (03:45)
[2020-07-08] MEDS ORDERED: LORAZEPAM 2 MG/ML 1 ML VIAL ONE (04:51)
[2020-07-08] MEDS: ZOSYN 3.375GM+NS 50ML 50 ML IV SCH ×2 (12:00→20:00)
[2020-07-08] MEDS ORDERED: DILTIAZEM 60MG TAB ONE ×2 (14:00→20:46)
[2020-07-08] MEDS: DILTIAZEM 60MG TAB PO SCH (18:00)
[2020-07-08] MEDS ORDERED: 0.9%NACL 1000ML 1,000 ML IV ONE (19:58)
[2020-07-08] MEDS ORDERED: METOPROLOL TARTRATE 1 MG/ML 5ML VIAL IV ONE (20:04)
[2020-07-08] MEDS ORDERED: METOPROLOL TARTRATE 1 MG/ML 5ML VIAL IV PRN (23:30)
[2020-07-09] MEDS ORDERED: METOPROLOL TARTRATE 1 MG/ML 5ML VIAL IV ONE ×2 (02:50→10:57)
[2020-07-09] MEDS ORDERED: DILTIAZEM 60MG TAB ONE ×4 (02:50→20:25)
[2020-07-09] MEDS: 0.9%NACL 1000ML 1,000 ML IV SCH ×3 (03:45→19:45)
[2020-07-09] MEDS: ZOSYN 3.375GM+NS 50ML 50 ML IV SCH ×3 (04:00→20:00)
[2020-07-09] MEDS ORDERED: ZOSYN 3.375GM+NS 50ML 50 ML IV ONE ×3 (04:02→20:26)
[2020-07-09] MEDS: DILTIAZEM 60MG TAB PO SCH ×4 (06:00→18:00)
[2020-07-09 06:20] LABS: MEAN CORPUSCULAR HEMOGLOBIN 28.8 pg (27.0-33.0); MEAN CORPUSCULAR HGB CONC 32.3 g/dL (32.0-36.0); RED BLOOD CELL COUNT(AUTO) 3.37 MIL/uL (4.50-6.20); RED CELL DISTRIBUTION WIDTH 13.9 % (11.0-15.5); WHITE BLOOD COUNT (AUTO) 11.1 K/uL (4.8-10.8)
[2020-07-09 06:34] LABS: CREATININE 1.2 mg/dL (0.5-1.5); POTASSIUM 3.7 mmol/L (3.5-5.1)
[2020-07-09] MEDS ORDERED: 0.9%NACL 1000ML 1,000 ML IV ONE (20:36)
[2020-07-09] MEDS ORDERED: NON-FORMULARY MEDICATION 1 EACH (Prednisone 5 MG) PO SCH (21:00)
[2020-07-09] MEDS: PREDNISONE 5 MG TABLET PO SCH (21:00)
[2020-07-10] MEDS: 0.9%NACL 1000ML 1,000 ML IV SCH ×2 (03:45→11:45)
[2020-07-10] MEDS: ZOSYN 3.375GM+NS 50ML 50 ML IV SCH ×3 (04:00→20:14)
[2020-07-10] MEDS ORDERED: DILTIAZEM 60MG TAB ONE (04:06)
[2020-07-10] MEDS ORDERED: ZOSYN 3.375GM+NS 50ML 50 ML IV ONE (04:06)
[2020-07-10 06:30] VITALS: BP 137/71
[2020-07-10 08:00] VITALS: BP 118/94
[2020-07-10] MEDS ORDERED: NON-FORMULARY MEDICATION 1 EACH (Lisinopril/Hydrochlorothiazide (Lisinopril-Hctz 20-12.5 m PO SCH (09:00)
[2020-07-10] MEDS: METOPROLOL TARTRATE 50 MG TAB PO SCH (09:49)
[2020-07-10] MEDS: TAMSULOSIN HCL 0.4 MG CAP.ER.24H PO SCH (09:49)
[2020-07-10] MEDS: ATORVASTATIN 10 MG TABLET PO SCH (09:49)
[2020-07-10] MEDS: FUROSEMIDE 40 MG TABLET PO SCH (09:50)
[2020-07-10] MEDS: PREDNISONE 5 MG TABLET PO SCH ×2 (09:50→20:14)
[2020-07-10] MEDS: DILTIAZEM 60MG TAB PO SCH ×4 (12:00→17:57)
[2020-07-10] MEDS: LISINOPRIL 20 MG TABLET PO SCH (12:32)
[2020-07-10] MEDS: HYDROCHLOROTHIAZIDE 25 MG TABLET PO SCH (12:32)
[2020-07-10 13:44] VITALS: BP 147/92
[2020-07-10 16:00] VITALS: BP 121/84
[2020-07-10 20:12] VITALS: BP 139/87
[2020-07-11] VITALS: BP 137/73
[2020-07-11] MEDS: DILTIAZEM 60MG TAB PO SCH ×4 (00:46→18:28)
[2020-07-11 04:09] VITALS: BP 129/68
[2020-07-11 04:33] LABS: HEMATOCRIT 28.5 % (42-54); MEAN CORPUSCULAR HEMOGLOBIN 28.9 pg (27.0-33.0); MEAN CORPUSCULAR HGB CONC 33.3 g/dL (32.0-36.0); MEAN CORPUSCULAR VOLUME 86.6 fL (79-99); NUCLEATED RED BLOOD CELLS 0.1 % (0.0-0.19); RED BLOOD CELL COUNT(AUTO) 3.29 MIL/uL (4.50-6.20); RED CELL DISTRIBUTION WIDTH 13.7 % (11.0-15.5); WHITE BLOOD COUNT (AUTO) 13.6 K/uL (4.8-10.8)
[2020-07-11 04:44] LABS: CREATININE 0.9 mg/dL (0.5-1.5)
[2020-07-11 04:46] LABS: POTASSIUM 2.9 mmol/L (3.5-5.1)
[2020-07-11] MEDS: ZOSYN 3.375GM+NS 50ML 50 ML IV SCH ×3 (05:37→21:30)
[2020-07-11 08:00] VITALS: BP 138/90
[2020-07-11] MEDS ORDERED: POTASSIUM CHLORIDE 20MEQ/100ML 100 ML IV PRN ×2 (08:45)
[2020-07-11] MEDS ORDERED: LIDOCAINE HCL-MPF 1% 2ML VIAL IV PRN ×2 (08:45)
[2020-07-11] MEDS ORDERED: POTASSIUM CHLORIDE 10% ELIXIR 20 MEQ/15 ML UDCUP PO PRN (08:45)
[2020-07-11] MEDS: HYDROCHLOROTHIAZIDE 25 MG TABLET PO SCH (09:42)
[2020-07-11] MEDS: LISINOPRIL 20 MG TABLET PO SCH (09:42)
[2020-07-11] MEDS: METOPROLOL TARTRATE 50 MG TAB PO SCH (09:44)
[2020-07-11] MEDS: TAMSULOSIN HCL 0.4 MG CAP.ER.24H PO SCH (09:44)
[2020-07-11] MEDS: PREDNISONE 5 MG TABLET PO SCH ×2 (09:45→21:30)
[2020-07-11] MEDS: ATORVASTATIN 10 MG TABLET PO SCH (09:45)
[2020-07-11 12:00] VITALS: BP 128/78
[2020-07-11] MEDS: FUROSEMIDE 40 MG TABLET PO SCH (13:00)
[2020-07-11] MEDS: KCL 20 MEQ ERTAB PO PRN ×4 (13:00→21:54)
[2020-07-11] MEDS: 0.9%NACL 1000ML 1,000 ML IV SCH ×2 (13:28→21:33)
[2020-07-11] MEDS ORDERED: SULF1TAB42 PO (14:10)
[2020-07-11 16:00] VITALS: BP 120/76
[2020-07-11 20:00] VITALS: BP 119/74
[2020-07-11] MEDS ORDERED: INSULIN GLARGINE 100 UNITS/ML 10 ML VIAL SQ SCH ×2 (21:00)
[2020-07-12] VITALS: BP 111/53
[2020-07-12] MEDS: DILTIAZEM 60MG TAB PO SCH ×3 (01:17→12:34)
[2020-07-12 04:00] VITALS: BP 117/69
[2020-07-12] MEDS: 0.9%NACL 1000ML 1,000 ML IV SCH ×2 (05:28→12:35)
[2020-07-12] MEDS: ZOSYN 3.375GM+NS 50ML 50 ML IV SCH ×2 (05:29→12:34)
[2020-07-12 06:01] LABS: MEAN CORPUSCULAR HEMOGLOBIN 28.8 pg (27.0-33.0); MEAN CORPUSCULAR HGB CONC 34.3 g/dL (32.0-36.0); MEAN CORPUSCULAR VOLUME 84.1 fL (79-99); RED BLOOD CELL COUNT(AUTO) 3.33 MIL/uL (4.50-6.20); RED CELL DISTRIBUTION WIDTH 13.2 % (11.0-15.5); WHITE BLOOD COUNT (AUTO) 10.6 K/uL (4.8-10.8)
[2020-07-12 06:22] LABS: CREATININE 0.8 mg/dL (0.5-1.5); POTASSIUM 3.7 mmol/L (3.5-5.1)
[2020-07-12 09:06] VITALS: BP 134/95
[2020-07-12] MEDS: TAMSULOSIN HCL 0.4 MG CAP.ER.24H PO SCH (09:57)
[2020-07-12] MEDS: LISINOPRIL 20 MG TABLET PO SCH (09:57)
[2020-07-12] MEDS: HYDROCHLOROTHIAZIDE 25 MG TABLET PO SCH (09:57)
[2020-07-12] MEDS: ATORVASTATIN 10 MG TABLET PO SCH (09:58)
[2020-07-12] MEDS: PREDNISONE 5 MG TABLET PO SCH (09:58)
[2020-07-12] MEDS: METOPROLOL TARTRATE 50 MG TAB PO SCH (09:58)
[2020-07-12] MEDS: FUROSEMIDE 40 MG TABLET PO SCH (09:58)
[2020-07-12] MEDS: KCL 20 MEQ ERTAB PO PRN ×2 (10:01→12:34)
[2020-07-12 12:16] VITALS: BP 129/81
[2020-07-12 13:58] VITALS: BP 159/76
== END 2020-07-12 16:58 | DRG 177 ==
LOC: EDH 23:47 → EDHIP 07-08 03:00 → 4AH 07-10 06:25
PROVIDERS: ADMIT Internal Medicine Critical Care Medicine; ATTEND Internal Medicine Critical Care Medicine
PROC: 5A09357 Assistance with Respiratory Ventilation, Less than 24 Consecutive Hours, Continuous Positive Airway Pressure (ICD-10-PCS; principal; 2020-07-10)
DX: U07.1 COVID-19 (principal); J12.82 Pneumonia due to coronavirus disease 2019; N39.0 Urinary tract infection, site not specified; E87.1 Hypo-osmolality and hyponatremia; Z51.5 Encounter for palliative care; Z66 Do not resuscitate; I48.91 Unspecified atrial fibrillation; E11.9 Type 2 diabetes mellitus without complications; E78.5 Hyperlipidemia, unspecified; B96.89 Other specified bacterial agents as the cause of diseases classified elsewhere; I95.9 Hypotension, unspecified; Z79.4 Long term (current) use of insulin; Z79.899 Other long term (current) drug therapy; Z85.46 Personal history of malignant neoplasm of prostate; Z95.1 Presence of aortocoronary bypass graft
CPT/HCPCS: 36415; 71045; 80048; 80053; 80305; 81001; 82948; 83605; 84132; 84484; 85025; 85027; 85610; 85730; 87040; 87077; 87088; 87186; 87426; 93005; C9113; G0378; J0696; J2060; J2543; J3480; J3490; J7030; J7512; U0003